=== PATIENT | female | born 1960 | race Caucasian/White ===

== ENCOUNTER 2017-04-26 07:45 | Day surgery (SDC) | payer OTHER ==
[2017-04-26] MEDS ORDERED: Lactated Ringer's 500 ML IV ONE (07:56)
[2017-04-26] MEDS ORDERED: Albuterol HFA 90 mcg/actuation (8 g) ONE (08:17)
[2017-04-26] MEDS ORDERED: Propofol 10 mg/ml Inj (20 ML) ONE (09:01)
[2017-04-26 10:10] VITALS: BP 140/88; PULSE 80; RESP 14; TEMP 98; O2SAT 99
== END 2017-04-26 10:30 | disposition home or self-care (01) ==
LOC: H.ENDO 07:45
PROVIDERS: ATTEND Internal Medicine Gastroenterology
DX: K30 Functional dyspepsia (principal); E11.9 Type 2 diabetes mellitus without complications; E78.5 Hyperlipidemia, unspecified; I10 Essential (primary) hypertension; J45.909 Unspecified asthma, uncomplicated; G47.33 Obstructive sleep apnea (adult) (pediatric); K31.9 Disease of stomach and duodenum, unspecified

== ENCOUNTER 2017-06-04 01:32 | Emergency (ER) | payer OTHER ==
[2017-06-04 01:48] VITALS: BP 161/90; RESP 17; TEMP 99.5; O2SAT 98
[2017-06-04] MEDS ORDERED: Albuterol-Ipratrop 3 mg / 0.5 (3 ml) UD INH STA (02:15)
[2017-06-04] MEDS ORDERED: Promethazine/Cod 6.25mg-10mg/5ml Syr UD PO STA (02:15)
[2017-06-04] MEDS ORDERED: Promethazine/Cod 6.25mg-10mg/5ml Syr UD ONE (02:21)
[2017-06-04] MEDS ORDERED: Albuterol-Ipratrop 3 mg / 0.5 (3 ml) UD ONE (02:22)
[2017-06-04 02:42] LABS: BASO # 0.1 K/uL (0.0-0.2); BASO % 1.5 % (0.0-2.0); EOS # 0.5 K/uL (0.0-0.7); EOS % 9.5 % (0.0-4.0); HEMATOCRIT 40.5 % (34.0-47.0); LYMPH # 2.3 K/uL (1.0-4.3); LYMPH % 40.9 % (20.0-40.0); MEAN CELL VOLUME 87.1 fl (81.0-99.0); MEAN CORPUSCULAR HEMOGLOBIN 28.6 pg (27.0-31.0); MEAN CORPUSCULAR HGB CONC 32.8 g/dL (33.0-37.0); MEAN PLATELET VOLUME 9.6 fl (7.2-11.7); MONO # 0.5 K/uL (0.0-0.8); MONO % 9.2 % (0.0-10.0); NEUT # 2.1 K/uL (1.8-7.0); NEUT % 38.9 % (50.0-75.0); NRBC % 0.1 % (0.0-0.0); RED CELL DISTRIBUTION WIDTH 14.7 % (11.5-14.5); WHITE BLOOD COUNT 5.5 K/uL (4.8-10.8)
[2017-06-04 02:51] LABS: BLOOD UREA NITROGEN 10 mg/dl (7-17); CALCIUM 9.2 mg/dL (8.4-10.2); CARBON DIOXIDE 30 mmol/L (22-30); CHLORIDE 104 mmol/L (98-107); GFR AFRICAN-AMERICAN > 60; GLUCOSE,RANDOM 106 mg/dL (65-105); POTASSIUM 4.1 MMOL/L (3.6-5.0); SODIUM 144 mmol/l (132-148)
--- NOTE | 2017-06-04 03:31 | ED PDOC ---
HPI: CCC, URI, Sore Throat Time Seen by Provider: 06/04/17 01:52 Chief Complaint (Nursing): Cough, Cold, Congestion Chief Complaint (Provider): Couj, Congestion and Difficulty Breathing Onset/Duration Of Symptoms: Days (x3 days) Associated Symptoms: denies: Fever Additional Complaint(s): Tereza Garcia, a 57 year old female, who has a past medical history of hypertension, hyperlipidemia and bronchitis presents to the ED with cough, congestion and difficulty breathing x1 day.The patient states that her cough is productive of yellow sputum with some associated chest pain. Denies fever. The patient reports that she has had intermittent episodes of difficulty breathing. She states that she saw Dr. Huitron yesterday and he prescribed ventolin and levaquin and she has been compliant with these medications. Patient also notes some sore throat and constipation. Past Medical History Reviewed: Historical Data, Nursing Documentation, Vital Signs Vital Signs: Last Vital Signs Temp 99.5 F 06/04/17 01:44 Pulse 92 H 06/04/17 03:41 Resp 17 06/04/17 01:44 BP 161/90 H 06/04/17 01:44 Pulse Ox 98 06/04/17 03:41 - Medical History PMH: Asthma (NEVER HAD ATTACK), Bronchitis, HTN, Hypercholesterolemia, Sleep Apnea Denies: Chronic Kidney Disease - Family History Family History: States: Unknown Family Hx - Home Medications Home Medications: Ambulatory Orders Medication Instructions Recorded Albuterol HFA [Ventolin HFA 90 2 puff IH [id number] 04/26/17 mcg/actuation (8 g)] Atorvastatin [Lipitor] 40 mg PO DAILY 04/26/17 Losartan/Hydrochlorothiazide 1 each PO DAILY 04/26/17 [Losartan-Hctz 100-25 mg Tab] Metformin ER [Glucophage XR] 500 mg PO DAILY 04/26/17 Cholecalciferol (Vitamin D3) 50,000 unit PO QWK 06/04/17 [Vitamin D3] Esomeprazole Magnesium [Nexium 2 cap PO DAILY 06/04/17 24Hr] Fish Oil/Dha/Epa [Fish Oil 1,200 1 each PO DAILY 06/04/17 mg Fish Oil] Promethazine/Codeine 5 ml PO Q6 PRN #100 ml 06/04/17 [Phenergan/Codeine Oral Syrup] levoFLOXacin [Levaquin] 500 mg PO DAILY 06/04/17 - Allergies Allergies/Adverse Reactions: Allergies Allergy/AdvReac Type Severity Reaction Status Date / Time No Known Allergies Allergy Unverified 02/22/14 12:23 Review of Systems ROS Statement: Except As Marked, All Systems Reviewed And Found Negative Constitutional: Positive for: Other (Congestion). Negative for: Fever ENT: Positive for: Throat Pain Cardiovascular: Positive for: Chest Pain (Chest pain with cough) Respiratory: Positive for: Cough Gastrointestinal: Positive for: Constipation Physical Exam - Reviewed Nursing Documentation Reviewed: Yes Vital Signs Reviewed: Yes - Physical Exam Appears: Positive for: Non-toxic, No Acute Distress Head Exam: Positive for: ATRAUMATIC, NORMAL INSPECTION, NORMOCEPHALIC Skin: Positive for: Normal Color, Warm, Dry Eye Exam: Positive for: Normal appearance, EOMI, PERRL ENT: Positive for: Normal ENT Inspection Neck: Positive for: Normal, Painless ROM, Supple Cardiovascular/Chest: Positive for: Regular Rate, Rhythm, Chest Non Tender. Negative for: Tachycardia Respiratory: Positive for: Wheezing (Wheezes bilaterally.). Negative for: Respiratory Distress Gastrointestinal/Abdominal: Positive for: Normal Exam Back: Positive for: Normal Inspection Extremity: Positive for: Normal ROM Neurologic/Psych: Positive for: Alert, Oriented, Gait - Laboratory Results Result Diagrams: 06/04/17 02:37 06/04/17 02:37 - ECG ECG: Positive for: Interpreted By Me, Viewed By Me ECG Rhythm: Positive for: Normal QRS, Normal ST Segment, Sinus Rhythm. Negative for: ST/T Changes Rate: 92 O2 Sat by Pulse Oximetry: 98 (RA) Pulse Ox Interpretation: Normal - Radiology X-Ray: Interpreted by Me, Viewed By Me X-Ray Interpretation: No Acute Disease Medical Decision Making Medical Decision Makin Initial Impression: 57 year old female presenting with acute bronchitis Differential: Pneumonia Initial plan: * EKG * Basic Metabolic Panel * CBC * Chest X-ray * Blood Culture * Peak flow pre/post * Duoneb 3mg/0.5m INH * Rapid strep group * Reevaluation Patient is medically stable and will be discharged home. Scribe Attestation Documented by Felicita Ortiz acting as a scribe for Priscilla Obrien MD. Provider Attestation All medical record entries made by the Scribe were at my direction and personally dictated by me. I have reviewed the chart and agree that the record accurately reflects my personal performance of the history, physical exam, medical decision making, and the department course for this patient. I have also personally directed, reviewed, and agree with the discharge instructions and disposition. Disposition - Clinical Impression Clinical Impression: Acute bronchitis - Patient ED Disposition Is Patient to be Admitted: No Doctor Will See Patient In The: Office Counseled Patient/Family Regarding: Studies Performed, Diagnosis, Need For Followup - Disposition Referrals: Donnell Fuller MD [Primary Care Provider] - Disposition: Routine/Home Disposition Time: 03:30 Condition: GOOD Additional Instructions: Take your medications as instructed. Follow up with your PCP in 2-3 days. Prescriptions: Promethazine/Codeine [Phenergan/Codeine Oral Syrup] 5 ml PO Q6 PRN #100 ml PRN Reason: Cough Instructions: Acute Bronchitis (ED) Forms: [employer] (Kazakh)
[2017-06-04 03:41] VITALS: PULSE 92
--- NOTE | 2017-06-04 07:11 | RAD ---
HISTORY: cough fever COMPARISON: None available. TECHNIQUE: Chest PA and lateral FINDINGS: LUNGS: No focal consolidation. Please note that chest x-ray has limited sensitivity for the detection of pulmonary masses. PLEURA: No significant pleural effusion identified. No definite pneumothorax . CARDIOVASCULAR: Heart size appears top normal. OSSEOUS STRUCTURES: Degenerative changes of the spine and shoulders. VISUALIZED UPPER ABDOMEN: Unremarkable. OTHER FINDINGS: None. IMPRESSION: No focal consolidation, significant pleural effusion, or definite pneumothorax identified.
== END 2017-06-04 03:45 | disposition home or self-care (01) ==
LOC: H.ER 01:32
DX: J20.9 Acute bronchitis, unspecified (principal); Z79.84 Long term (current) use of oral hypoglycemic drugs

== ENCOUNTER 2018-05-08 03:29 | Emergency (ER) | payer OTHER ==
[2018-05-08 03:46] VITALS: TEMP 98; O2SAT 98
[2018-05-08] MEDS ORDERED: diaZEpam 10 mg/2 ml Inj IVP ONE (03:52)
[2018-05-08] MEDS ORDERED: Morphine 4 MG/ML VIAL IVP ONE (03:54)
[2018-05-08] MEDS ORDERED: Morphine 4 MG/ML VIAL ONE (04:02)
--- NOTE | 2018-05-08 04:02 | ED PDOC ---
Upper Extremity Pain/Injury Time Seen by Provider: 05/08/18 03:41 Chief Complaint (Nursing): ENT Problem Chief Complaint (Provider): ENT Problem History Per: Patient History/Exam Limitations: no limitations Onset/Duration Of Symptoms: Days (x3) Current Symptoms Are (Timing): Still Present Additional Complaint(s): 57 year old female with medical history of dyslipidemia and hypertension, presents to the emergency department with a complaint of neck pain ongoing for 3 days. Patient reports pain radiates from ears to scalp to right collar bone associated stiffness with inability to rotate head. She states pain is worse with movements and has taken Ibuprofen without relief. She denies any fever, chills, headache, visual changes, nausea or vomiting. PMD: Donnell Fuller MD Past Medical History Reviewed: Historical Data, Nursing Documentation, Vital Signs Vital Signs: Last Vital Signs Temp 98.0 F 05/08/18 03:44 Pulse 68 05/08/18 03:44 Resp 16 05/08/18 03:44 BP 182/84 H 05/08/18 03:44 Pulse Ox 98 05/08/18 03:44 - Medical History PMH: Asthma (NEVER HAD ATTACK), Bronchitis, Gastritis, HTN, Hypercholesterolemia , Sleep Apnea Denies: Chronic Kidney Disease Other PMH: dyslipidemia; H. Pylori - Family History Family History: States: Unknown Family Hx - Home Medications Home Medications: Ambulatory Orders Medication Instructions Recorded Albuterol HFA [Ventolin HFA 90 2 puff IH [id number] 04/26/17 mcg/actuation (8 g)] Atorvastatin [Lipitor] 40 mg PO DAILY 04/26/17 Losartan/Hydrochlorothiazide 1 each PO DAILY 04/26/17 [Losartan-Hctz 100-25 mg Tab] MetFORMIN ER [Glucophage XR] 500 mg PO DAILY 04/26/17 Cholecalciferol (Vitamin D3) 50,000 unit PO QWK 06/04/17 [Vitamin D3] Esomeprazole Magnesium [Nexium 2 cap PO DAILY 06/04/17 24Hr] Fish Oil/Dha/Epa [Fish Oil 1,200 1 each PO DAILY 06/04/17 mg Fish Oil] Promethazine/Codeine 5 ml PO Q6 PRN #100 ml 06/04/17 [Phenergan/Codeine Oral Syrup] levoFLOXacin [Levaquin] 500 mg PO DAILY 06/04/17 Cyclobenzaprine [Cyclobenzaprine 10 mg PO TID PRN #15 tab 05/08/18 HCl] Meloxicam [Mobic] 15 mg PO DAILY #10 tab 05/08/18 - Allergies Allergies/Adverse Reactions: Allergies Allergy/AdvReac Type Severity Reaction Status Date / Time No Known Allergies Allergy Unverified 02/22/14 12:23 Review of Systems ROS Statement: Except As Marked, All Systems Reviewed And Found Negative Constitutional: Negative for: Fever, Chills Eyes: Negative for: Vision Change Gastrointestinal: Negative for: Nausea, Vomiting Musculoskeletal: Positive for: Neck Pain (stiff; unable to rotate head) Neurological: Negative for: Headache Physical Exam - Reviewed Nursing Documentation Reviewed: Yes Vital Signs Reviewed: Yes - Physical Exam Appears: Positive for: Uncomfortable Head Exam: Positive for: ATRAUMATIC, NORMAL INSPECTION, NORMOCEPHALIC Skin: Positive for: Normal Color Eye Exam: Positive for: Normal appearance ENT: Positive for: Normal ENT Inspection Neck: Positive for: Supple, Decreased ROM, Pain On Movement Of Neck (inability to rotate 30 degrees past midline bilaterally) Cardiovascular/Chest: Positive for: Regular Rate, Rhythm Respiratory: Positive for: Normal Breath Sounds. Negative for: Respiratory Distress Extremity: Positive for: Normal ROM (upper/lower) Neurologic/Psych: Positive for: Alert, Oriented. Negative for: Motor/Sensory Deficits - Laboratory Results Result Diagrams: 05/08/18 04:18 05/08/18 04:18 - ECG O2 Sat by Pulse Oximetry: 98 (RA) Pulse Ox Interpretation: Normal Medical Decision Making Medical Decision Making: Initial Impression: 57 y/o female with acute torticollis Initial Plan: * BMP * CBC * Flexeril 10mg PO * Morphine 4mg IVP * Toradol 30mg IV * Valium 10mg IVP Scribe Attestation: Documented by Yesenia Mohan, acting as a scribe for Chandler Pradhan MD. Provider Scribe Attestation: All medical record entries made by the Scribe were at my direction and personally dictated by me. I have reviewed the chart and agree that the record accurately reflects my personal performance of the history, physical exam, medical decision making, and the department course for this patient. I have also personally directed, reviewed, and agree with the discharge instructions and disposition. Disposition - Clinical Impression Clinical Impression: Torticollis - Disposition Disposition: Routine/Home Disposition Time: 06:00 Condition: STABLE Prescriptions: Cyclobenzaprine [Cyclobenzaprine HCl] 10 mg PO TID PRN #15 tab PRN Reason: neck pain/stiffness Instructions: Torticollis, Adult Forms: [facility] (Cape Verdean)
[2018-05-08 04:23] LABS: BASO # 0.1 K/uL (0.0-0.2); BASO % 1.3 % (0.0-2.0); EOS # 0.7 K/uL (0.0-0.7); EOS % 9.4 % (0.0-4.0); HEMOGLOBIN 12.7 g/dL (12.0-16.0); LYMPH # 3.8 K/uL (1.0-4.3); LYMPH % 51.5 % (20.0-40.0); MEAN CORPUSCULAR HEMOGLOBIN 29.8 pg (27.0-31.0); MEAN CORPUSCULAR HGB CONC 34.3 g/dL (33.0-37.0); MEAN PLATELET VOLUME 9.6 fl (7.2-11.7); MONO # 0.8 K/uL (0.0-0.8); MONO % 10.6 % (0.0-10.0); NEUT % 27.2 % (50.0-75.0); NRBC % 0.1 % (0.0-0.0); RBC 4.26 Mil/uL (3.80-5.20); RED CELL DISTRIBUTION WIDTH 14.6 % (11.5-14.5); WHITE BLOOD COUNT 7.3 K/uL (4.8-10.8)
[2018-05-08 04:58] LABS: GFR AFRICAN-AMERICAN > 60; GFR NON-AFRICAN AMERICAN > 60
[2018-05-08 05:20] LABS: BLOOD UREA NITROGEN 15 mg/dl (7-17)
[2018-05-08 06:22] VITALS: BP 161/94; PULSE 86; RESP 17
== END 2018-05-08 06:22 | disposition home or self-care (01) ==
LOC: H.ER 03:29
DX: M43.6 Torticollis (principal)
CPT/HCPCS: 80048; 85025; 96374; 99283; J1885

== ENCOUNTER 2018-05-08 18:03 | Emergency (ER) | payer SELFPAY ==
[2018-05-08 18:21] VITALS: RESP 18; TEMP 98.5
[2018-05-08] MEDS ORDERED: diaZEpam 10 mg/2 ml Inj IVP STA (18:41)
--- NOTE | 2018-05-08 20:16 | ED PDOC ---
Upper Extremity Pain/Injury Time Seen by Provider: 05/08/18 18:27 Chief Complaint (Nursing): Upper Extremity Problem/Injury Chief Complaint (Provider): Neck pain History Per: Patient History/Exam Limitations: no limitations Onset/Duration Of Symptoms: Days (x4) Additional Complaint(s): Patient is a 57 y/o female with history of asthma, HTN and HLD, who presents to the ED for evaluation of persistent neck pain, onset x4 days ago. Patient states she was seen in [facility] ED earlier this morning at 03:00 for the same pain and was given medication in the ED with temporary relief. She was discharged with a Rx for Flexeril which she last took at 11:00 today with no relief. Patient reports that pain worsens with movement and originates in the back of her scalp and radiates into her neck and shoulders bilaterally. She denies any fever, headache, dizziness, chills, vision changes, weakness, numbness, abdominal pain, chest pain, nausea, vomiting, rash, SOB, cough, or any falls/ trauma. PMD: Donnell Fuller Past Medical History Reviewed: Historical Data, Nursing Documentation, Vital Signs Vital Signs: Last Vital Signs Temp 98.5 F 05/08/18 18:17 Pulse 80 05/08/18 18:17 Resp 18 05/08/18 18:17 BP 166/88 H 05/08/18 18:17 Pulse Ox 99 05/08/18 18:17 - Medical History PMH: Asthma, Bronchitis, Gastritis, HTN, Hypercholesterolemia, Sleep Apnea - Surgical History Surgical History: No Surg Hx - Family History Family History: States: Unknown Family Hx - Living Arrangements Living Arrangements: With Family - Social History Current smoker - smoking cessation education provided: No Alcohol: Social Drugs: Denies - Home Medications Home Medications: Ambulatory Orders Medication Instructions Recorded Albuterol HFA [Ventolin HFA 90 2 puff IH [id number] 04/26/17 mcg/actuation (8 g)] Atorvastatin [Lipitor] 40 mg PO DAILY 04/26/17 Losartan/Hydrochlorothiazide 1 each PO DAILY 04/26/17 [Losartan-Hctz 100-25 mg Tab] MetFORMIN ER [Glucophage XR] 500 mg PO DAILY 04/26/17 Cholecalciferol (Vitamin D3) 50,000 unit PO QWK 06/04/17 [Vitamin D3] Esomeprazole Magnesium [Nexium 2 cap PO DAILY 06/04/17 24Hr] Fish Oil/Dha/Epa [Fish Oil 1,200 1 each PO DAILY 06/04/17 mg Fish Oil] Promethazine/Codeine 5 ml PO Q6 PRN #100 ml 06/04/17 [Phenergan/Codeine Oral Syrup] levoFLOXacin [Levaquin] 500 mg PO DAILY 06/04/17 Cyclobenzaprine [Cyclobenzaprine 10 mg PO TID PRN #15 tab 05/08/18 HCl] Meloxicam [Mobic] 15 mg PO DAILY #10 tab 05/08/18 - Allergies Allergies/Adverse Reactions: Allergies Allergy/AdvReac Type Severity Reaction Status Date / Time No Known Allergies Allergy Unverified 02/22/14 12:23 Review of Systems ROS Statement: Except As Marked, All Systems Reviewed And Found Negative Constitutional: Negative for: Fever, Chills, Weakness, Other (fall or trauma) Cardiovascular: Negative for: Chest Pain Gastrointestinal: Negative for: Nausea, Vomiting, Abdominal Pain Musculoskeletal: Positive for: Neck Pain Skin: Negative for: Rash Neurological: Negative for: Numbness, Headache Physical Exam - Reviewed Nursing Documentation Reviewed: Yes Vital Signs Reviewed: Yes - Physical Exam Comments: GENERAL APPEARANCE: Patient is awake, alert, oriented x3; no acute distress. Uncomfortable appearing. SKIN: Warm, dry; (-) cyanosis. HEAD: (-) scalp tenderness EYES: (-) conjunctival pallor, (-) scleral icterus. ENMT: Mucous membranes moist. Airway patent (-) stridor. TMs (-) erythema (-) bulging bilaterally. Pharynx clear, uvula midline. (-) pharyngeal erythema or exudate. NECK: Supple (-) lymphadenopathy. Decreased range of motion secondary to pain; diffuse paracervical and midline tenderness. (-) skin changes CHEST AND RESPIRATORY: (-) rales, (-) rhonchi, (-) wheezes; breath sounds equal bilaterally. Speaking in full sentences, respirations even and nonlabored. HEART AND CARDIOVASCULAR: (-) irregularity; (-) murmur, (-) gallop. ABDOMEN: Soft (-) distention.(-) tenderness (-) guarding SHOULDERS: Bilateral trapezius tenderness. Decreased extension and abduction of arms secondary to neck pain NEURO AND PSYCH: Mental status as above; (-) focal findings. Gait steady, speech clear. EOMI and painless. Pupils equal and reactive. (-) nystagmus. Strength symmetric. bass singer II-XII grossly intact. Cerebellar tests intact. - ECG O2 Sat by Pulse Oximetry: 99 (RA) Pulse Ox Interpretation: Normal Medical Decision Making Medical Decision Making: Time: 18:41 Initial Impression: Acute neck pain/spasm Initial Plan: --IV access --RAD cervical spine 4 views --Toradol 30mg IVP --Ultram 100mg PO (Not driving home) --Valium 5mg PO --Zofran 4mg IVP --Reevaluation Cervical XR reviewed: (+) degenerative changes (-) fracture (-) dislocation Patient notified a Radiologist will review the ED reading if any change in treatment is needed we will contact her. Time 20:15 Repeat BP: 149/80 Repeat HR: 71 On re-evaluation, patient reports improvement of symptoms. Improved ROM of neck. On exam, patient remains AAOx3, in no acute distress. Lungs clear to auscultation, cardiac RRR, abdomen soft, non-tender, repeat neuro exam shows no focal findings. VSS, stable for discharge. Advised to continue Flexeril use in addition to new NSAID Rx. Lab/Diagnostic results d/w the patient in great detail. Diagnosis of acute neck pain/spasm d/w the patient. Based on history, exam and diagnostic results, plan will be for outpatient follow up. Patient instructed to follow-up with pmd / referral provided / the clinic in 1- 2 days without fail. Advised to take medication as prescribed. Return to the emergency room at any time for any new or worsening symptoms. Patient states she fully agrees with and understands discharge instructions. States that she agrees with the plan and disposition. Verbalized and repeated discharge instructions and plan. I have given the patient opportunity to ask any additional questions. Scribe Attestation: Documented by Mik Pennington, acting as a scribe for Alyx Neal PA-C Provider Scribe Attestation: All medical record entries made by the Scribe were at my direction and personally dictated by me. I have reviewed the chart and agree that the record accurately reflects my personal performance of the history, physical exam, medical decision making, and the department course for this patient. I have also personally directed, reviewed, and agree with the discharge instructions and disposition. Disposition - Clinical Impression Clinical Impression: Muscle spasms of neck, Neck pain - Patient ED Disposition Is Patient to be Admitted: No Counseled Patient/Family Regarding: Studies Performed, Diagnosis, Need For Followup, Rx Given - Disposition Referrals: Shawn Van MD [Staff Provider] - Disposition: Routine/Home Disposition Time: 20:17 Condition: STABLE Additional Instructions: ANTON HATHAWAY, thank you for letting us take care of you today. The emergency medical care you received today was directed at your acute symptoms. If you were prescribed any medication, please fill it and take as directed. It may take several days for your symptoms to resolve. Return to the Emergency Department if your symptoms worsen, do not improve, or if you have any other problems. Please contact your doctor or call one of the physicians/clinics you have been referred to that are listed on the Patient Visit Information form that is included in your discharge packet. Bring any paperwork you were given at discharge with you along with any medications you are taking to your follow up visit. Our treatment cannot replace ongoing medical care by a primary care provider outside of the emergency department. Thank you for allowing the [facility] team to be part of your care today. If you had an X-Ray or CT scan: A Radiologist will review the ED reading if any change in treatment is needed we will contact you. If you had a blood, urine, or wound culture: It will take several days for the results, if any change in treatment is needed we will contact you. If you had an STI test: It will take 48 hours for the results. Please call after 1 week if you have not heard back. Prescriptions: Meloxicam [Mobic] 15 mg PO DAILY #10 tab Instructions: Neck Pain, Muscle Spasms (DC), Generalized Neck Pain Forms: [facility] (Kittitian) Print Language: ITALIAN - POJuana Present On Arrival: None
[2018-05-08 20:30] VITALS: BP 149/80; PULSE 71
--- NOTE | 2018-05-09 10:14 | RAD ---
PROCEDURE: Cervical Spine Radiographs. HISTORY: Pain. COMPARISON: None. FINDINGS: BONES: Alignment maintained. No fracture. Dens Intact. DISC SPACES: Minimal narrowing of the C5-6 intervertebral disc space consistent with early degenerative disc disease. The remaining intervertebral disc spaces are maintained in height. SOFT TISSUES: Normal. No prevertebral soft tissue swelling. OTHER FINDINGS: None. IMPRESSION: Early degenerative disc disease at C5-6. No evidence of fracture/ dislocation.
[2018-05-12 13:45] VITALS: O2SAT 99
== END 2018-05-08 20:29 | disposition home or self-care (01) ==
LOC: H.ER 18:03
DX: M54.2 Cervicalgia (principal); E78.00 Pure hypercholesterolemia, unspecified; Z79.84 Long term (current) use of oral hypoglycemic drugs; Z87.19 Personal history of other diseases of the digestive system; M62.838 Other muscle spasm
CPT/HCPCS: 72050; 96374; 96375; 99283; J1885; J2405

== ENCOUNTER 2018-06-11 14:30 | Emergency (ER) | payer OTHER ==
[2018-06-11 14:34] VITALS: BMI 36.7
[2018-06-11] MEDS ORDERED: Iohexol 240 (50 ml) PO ONE (15:15)
[2018-06-11] MEDS ORDERED: Sodium Chloride 0.9% 1,000 ML IV STA (15:18)
--- NOTE | 2018-06-11 15:24 | ED PDOC ---
HPI: Abdomen Time Seen by Provider: 06/11/18 15:04 Chief Complaint (Nursing): Abdominal Pain Chief Complaint (Provider): Abdominal Pain History Per: Patient History/Exam Limitations: no limitations Onset/Duration Of Symptoms: Days (x2) Current Symptoms Are (Timing): Still Present Location Of Pain/Discomfort: Diffuse Quality Of Discomfort: Unable To Describe Associated Symptoms: Fever, Nausea. denies: Vomiting Additional Complaint(s): 58 y/o female with a PMHx of HTN presents to the ED complaining of abdominal pain and diarrhea, onset night. Patient reports of having 8 episodes of water, non-bloody diarrhea a day associated with nausea. Patient also reports of having a fever with a Tmax of 102, decreased appetite, myalgia, malaise and fatigue. Patient states her was admitted to the ICU for dehydration, diarrhea and sepsis yesterday. Patient states her began to get sick two days prior to onset of her illness. Denies recent travel and antibiotic use. Patient reports abdominal pain as diffuse and cramping. Patient also is complaining of right upper quadrant abdominal pain that she's had for two years. PMD: Dr. Fuller Past Medical History Reviewed: Historical Data, Nursing Documentation, Vital Signs Vital Signs: Last Vital Signs Temp 97.8 F 06/11/18 19:33 Pulse 70 06/11/18 19:33 Resp 17 06/11/18 19:33 BP 128/71 06/11/18 19:33 Pulse Ox 100 06/11/18 19:33 - Medical History PMH: Asthma, Bronchitis, Gastritis, HTN, Hypercholesterolemia, Sleep Apnea Denies: Chronic Kidney Disease - Surgical History Surgical History: No Surg Hx - Family History Family History: States: Hypertension - Social History Current smoker - smoking cessation education provided: No Alcohol: None Drugs: Denies - Home Medications Home Medications: Ambulatory Orders Medication Instructions Recorded Albuterol HFA [Ventolin HFA 90 2 puff IH [id number] 04/26/17 mcg/actuation (8 g)] Atorvastatin [Lipitor] 40 mg PO DAILY 04/26/17 Losartan/Hydrochlorothiazide 1 each PO DAILY 04/26/17 [Losartan-Hctz 100-25 mg Tab] MetFORMIN ER [Glucophage XR] 500 mg PO DAILY 04/26/17 Cholecalciferol (Vitamin D3) 50,000 unit PO QWK 06/04/17 [Vitamin D3] Esomeprazole Magnesium [Nexium 2 cap PO DAILY 06/04/17 24Hr] Fish Oil/Dha/Epa [Fish Oil 1,200 1 each PO DAILY 06/04/17 mg Fish Oil] Promethazine/Codeine 5 ml PO Q6 PRN #100 ml 06/04/17 [Phenergan/Codeine Oral Syrup] levoFLOXacin [Levaquin] 500 mg PO DAILY 06/04/17 Cyclobenzaprine [Cyclobenzaprine 10 mg PO TID PRN #15 tab 05/08/18 HCl] Meloxicam [Mobic] 15 mg PO DAILY #10 tab 05/08/18 Atropine/Diphenoxylate [Lonox 2 tab PO QID PRN #30 tab 06/11/18 0.025 MG-2.5 MG] Ciprofloxacin HCl [Cipro] 500 mg PO BID #20 tab 06/11/18 Saccharomyces Boulardi [Florastor] 500 mg PO BID #28 cap 06/11/18 metroNIDAZOLE [Flagyl] 500 mg PO TID #30 tab 06/11/18 - Allergies Allergies/Adverse Reactions: Allergies Allergy/AdvReac Type Severity Reaction Status Date / Time No Known Allergies Allergy Unverified 02/22/14 12:23 Review of Systems ROS Statement: Except As Marked, All Systems Reviewed And Found Negative (as per HPI) Constitutional: Positive for: Fever (Tmax of 102), Malaise, Other (Myalgia and Fatigue) Gastrointestinal: Positive for: Nausea, Abdominal Pain (Diffuse and cramping), Diarrhea (Watery, non-bloody), Other (Decreased appetite). Negative for: Vomiting Physical Exam - Reviewed Nursing Documentation Reviewed: Yes Vital Signs Reviewed: Yes - Physical Exam Appears: Positive for: Non-toxic, In Acute Distress (Tired and in mild painful distress) Head Exam: Positive for: ATRAUMATIC, NORMOCEPHALIC Skin: Positive for: Warm, Dry Eye Exam: Positive for: EOMI, PERRL ENT: Positive for: Normal ENT Inspection, Pharynx Is (clear), Other (Dry Mucous Membranes) Neck: Positive for: Painless ROM, Supple Cardiovascular/Chest: Positive for: Regular Rate, Rhythm. Negative for: Murmur Respiratory: Positive for: Normal Breath Sounds. Negative for: Respiratory Distress Gastrointestinal/Abdominal: Positive for: Normal Exam, Soft, Tenderness ( Diffuse tenderness to palpation). Negative for: Mass, Guarding, Rebound Back: Positive for: Normal Inspection. Negative for: Decreased ROM Extremity: Positive for: Normal ROM. Negative for: Deformity Lymphatic: Negative for: Adenopathy Neurologic/Psych: Positive for: Alert. Negative for: Motor/Sensory Deficits - Laboratory Results Result Diagrams: 06/11/18 15:20 06/11/18 15:52 - ECG O2 Sat by Pulse Oximetry: 97 (RA) Pulse Ox Interpretation: Normal Medical Decision Making Medical Decision Making: Time: 152 Impression: Diarrhea, Abdominal Pain and Sepsis Differentials include but not limited to dehydration, electrolyte abnormality, colitis, diverticulitis, infectious diarrhea and C. Diff Plan: -- Type and Screen -- VBG -- CT Abd/Pelvis PO & IV Contrast -- EKG -- CMP -- Lipase -- Magnesium -- Phosphorus -- CBC with differentials -- PTT -- Prothromin Time -- Bentyl 20 mg PO -- Sodium Chloride IV 1000 mls/hr -- Iohexol 50 ml PO -- Zofran Inj 4 mg IVP -- Blood Culture -- OVA and Parasite -- Stool Culture -- Urine Culture -- IV Insertion -- C. Diff Toxin A B -- Urinalysis Time: 183 CT ABD/PELVIS RESULTS FINDINGS: Lower thorax: No acute findings. ABDOMEN: Liver: Normal. No mass. Gallbladder and bile ducts: Normal. No calcified stones. No ductal dilation. Pancreas: Normal. No ductal dilation. Spleen: Normal. No splenomegaly. Adrenals: Normal. No mass. Kidneys and ureters: Normal. No hydronephrosis. Stomach and bowel: There is mild colonic diverticulosis mainly in the descending and sigmoid colon. There is colonic wall thickening throughout the colon which may be partly due to under distention but cannot exclude mild nonspecific pancolitis. Less consistent with acute diverticulitis. No signs of abscess or perforation. Appendix: The appendix is unremarkable and seen best on axial image 67 of series 2. PELVIS: Bladder: Unremarkable as visualized. Reproductive: Unremarkable as visualized. ABDOMEN and PELVIS: Intraperitoneal space: Normal. No free air. No significant fluid collection. Bones/joints: No acute fracture. No dislocation. Soft tissues: Unremarkable. Vasculature: There are calcified phleboliths in the pelvis. Lymph nodes: Normal. No enlarged lymph nodes. IMPRESSION: There is mild colonic diverticulosis mainly in the descending and sigmoid colon. There is colonic wall thickening throughout the colon which may be partly due to under distention but cannot exclude mild nonspecific pancolitis. Less consistent with acute diverticulitis. No signs of abscess or perforation. Thank you for allowing us to participate in the care of your patient. Dictated and Authenticated by: Chan Pelaez MD 06/11/2018 6:35 PM Eastern Time ([place] & [place]) Time: 1844 -- Lab results were unremarkable. -- Discussed with patient findings and plan of care. Patient to be started on antibiotics and instructed to follow up with PMD for re-evaluation. Patient advised for a GI follow up for re-current abdominal pain and further evaluation of colitis. Scribe Attestation: Documented by Dipesh Nelson, acting as a scribe for Dr. Liliya Rangel. Provider Scribe Attestation: All medical record entries made by the Scribe were at my direction and personally dictated by me. I have reviewed the chart and agree that the record accurately reflects my personal performance of the history, physical exam, medical decision making, and the department course for this patient. I have also personally directed, reviewed, and agree with the discharge instructions and disposition. Disposition - Clinical Impression Clinical Impression: Colitis - Patient ED Disposition Is Patient to be Admitted: No Counseled Patient/Family Regarding: Studies Performed, Diagnosis, Need For Followup, Rx Given - Disposition Referrals: Donnell Fuller MD [Staff Provider] - Disposition: Routine/Home Disposition Time: 18:45 Condition: STABLE Additional Instructions: DRINK PLENTY IF HYDRATING FLUIDS BLAND DIET. FOLLOW UP WITH DR FULLER WEDNESDAY. ALSO FOLLOW UP WITH YOUR PHYSICAL SCIENCES PROFESSOR IN 1-2 WEEKS. RETURN TO ER IMMEDIATELY FOR: --SEVERE INTRACTABLE PAIN OR VOMITING --FAINTING OR NEAR FAINTING --BLOODY STOOL --ANY OTHER WORRISOME SYMPTOMS [facility], thank you for letting us take care of you today. Your provider was Liliya Rangel MD and you were treated for abdominal pain and diarrhea. The emergency medical care you received today was directed at your acute symptoms. If you were prescribed any medication, please fill it and take as directed. It may take several days for your symptoms to resolve. Return to the Emergency Department if your symptoms worsen, do not improve, or if you have any other problems. Please contact your doctor or call one of the physicians/clinics you have been referred to that are listed on the Patient Visit Information form that is included in your discharge packet. Bring any paperwork you were given at discharge with you along with any medications you are taking to your follow up visit. Our treatment cannot replace ongoing medical care by a primary care provider outside of the emergency department. Thank you for allowing the [facility] team to be part of your care today. If you had a blood, urine, or wound culture: It will take several days for the results, if any change in treatment is needed we will contact you. Prescriptions: Atropine/Diphenoxylate [Lonox 0.025 MG-2.5 MG] 2 tab PO QID PRN #30 tab PRN Reason: Diarrhea Ciprofloxacin HCl [Cipro] 500 mg PO BID #20 tab metroNIDAZOLE [Flagyl] 500 mg PO TID #30 tab Saccharomyces Boulardi [Florastor] 500 mg PO BID #28 cap Instructions: Diarrhea and Traveler's Diarrhea, Adult (DC) Forms: [employer] (Georgian)
[2018-06-11 15:47] LABS: VENOUS BLOOD GAS BASE EXCESS 1.7 mmol/L (0.0-2.0); VENOUS BLOOD GAS PCO2 42 mmHg (40-60); VENOUS BLOOD GAS PO2 39 mm/Hg (30-55); VENOUS BLOOD PH 7.41 (7.32-7.43)
[2018-06-11] MEDS ORDERED: Iohexol 240 (50 ml) ONE (15:48)
[2018-06-11 16:13] LABS: BASO % 0.5 % (0.0-2.0); EOS % 0.6 % (0.0-4.0); HEMOGLOBIN 12.9 g/dL (12.0-16.0); LYMPH # 1.8 K/uL (1.0-4.3); LYMPH % 23.8 % (20.0-40.0); MEAN CELL VOLUME 86.9 fl (81.0-99.0); MEAN CORPUSCULAR HEMOGLOBIN 28.9 pg (27.0-31.0); MEAN CORPUSCULAR HGB CONC 33.2 g/dL (33.0-37.0); MEAN PLATELET VOLUME 9.7 fl (7.2-11.7); MONO # 0.4 K/uL (0.0-0.8); MONO % 5.4 % (0.0-10.0); NEUT # 5.3 K/uL (1.8-7.0); NEUT % 69.7 % (50.0-75.0); RBC 4.46 Mil/uL (3.80-5.20); RED CELL DISTRIBUTION WIDTH 13.7 % (11.5-14.5); WHITE BLOOD COUNT 7.7 K/uL (4.8-10.8)
[2018-06-11 16:22] LABS: INR 1.1; PROTHROMBIN TIME 11.8 Seconds (9.8-13.1)
[2018-06-11 16:25] LABS: PARTIAL THROMBOPLASTIN TIME 30.7 Seconds (25.6-37.1)
[2018-06-11 16:29] LABS: ALB/GLOB RATIO 1.2 (1.0-2.1); ALBUMIN 4.2 g/dL (3.5-5.0); ALT/SGPT 49 U/L (9-52); AST/SGOT 41 U/L (14-36); BLOOD UREA NITROGEN 11 mg/dl (7-17); GFR AFRICAN-AMERICAN > 60; GFR NON-AFRICAN AMERICAN > 60; LIPASE 20 U/L (23-300)
[2018-06-11 17:08] LABS: SQUAMOUS EPITHIAL 4 /hpf (0-5); URINE BILIRUBIN NEGATIVE (NEGATIVE); URINE BLOOD NEGATIVE (NEGATIVE); URINE CLARITY CLEAR (Clear); URINE COLOR STRAW (YELLOW); URINE GLUCOSE (UA) NEG (Normal); URINE LEUKOCYTE ESTERASE NEG Leu/uL (Negative); URINE PROTEIN NEGATIVE (NEGATIVE); URINE UROBILINOGEN 0.2-1.0 mg/dL (0.2-1.0)
[2018-06-11] MEDS ORDERED: Iohexol 300 100 ML IJ ONE (17:58)
[2018-06-11] MEDS ORDERED: Sodium Chloride 0.9% 50 ML IV ONE (17:59)
[2018-06-11] MEDS ORDERED: Atropine-Diphenoxylate 0.025-2.5 mg Tab PO STA (18:39)
[2018-06-11] MEDS ORDERED: Atropine-Diphenoxylate 0.025-2.5 mg Tab ONE (19:00)
[2018-06-11 19:34] VITALS: BP 128/71; PULSE 70; RESP 17; TEMP 97.8
[2018-06-11 22:08] VITALS: O2SAT 97
--- NOTE | 2018-06-12 08:48 | CARD ---
APPROVED REPORT Date of service: 06/11/2018 <Conclusion> Normal sinus rhythm Possible Left atrial enlargement Prolonged QT Abnormal ECG
--- NOTE | 2018-06-12 08:57 | CT ---
Date of service: 06/11/2018 PROCEDURE: CT Abdomen and Pelvis with contrast HISTORY: abd pain diarrhea fever COMPARISON: None. TECHNIQUE: Contrast dose: Radiation dose: Total exam DLP = mGy-cm. This CT exam was performed using one or more of the following dose reduction techniques: Automated exposure control, adjustment of the mA and/or kV according to patient size, and/or use of iterative reconstruction technique. FINDINGS: LOWER THORAX: Unremarkable. LIVER: Unremarkable. No gross lesion or ductal dilatation. GALLBLADDER AND BILE DUCTS: Unremarkable. PANCREAS: Unremarkable. No gross lesion or ductal dilatation. SPLEEN: Unremarkable. ADRENALS: Unremarkable. No mass. KIDNEYS AND URETERS: Unremarkable. No hydronephrosis. No solid mass. VASCULATURE: Unremarkable. No aortic aneurysm. BOWEL: Diffuse colonic wall thickening with mild left-sided colonic diverticulosis ; correlate for colitis. APPENDIX: Normal appendix. PERITONEUM: Unremarkable. No free fluid. No free air. LYMPH NODES: Unremarkable. No enlarged lymph nodes. BLADDER: Unremarkable. REPRODUCTIVE: Unremarkable. BONES: No acute fracture. OTHER FINDINGS: None. IMPRESSION: Diffuse colonic wall thickening with mild left-sided colonic diverticulosis ; correlate for colitis.
== END 2018-06-11 19:32 | disposition home or self-care (01) ==
LOC: H.ER 14:30
DX: K52.9 Noninfective gastroenteritis and colitis, unspecified (principal); K57.30 Diverticulosis of large intestine without perforation or abscess without bleeding; E78.00 Pure hypercholesterolemia, unspecified; I10 Essential (primary) hypertension; J45.909 Unspecified asthma, uncomplicated; Z79.84 Long term (current) use of oral hypoglycemic drugs
CPT/HCPCS: 74177; 80053; 81003; 82803; 83690; 83735; 84100; 85025; 85610; 85730; 86850; 86900; 87040; 87045; 87086; 87177; 87209; 87230; 93005; 96374; 99284; J2405; J7030; Q9966; Q9967

== ENCOUNTER 2018-06-15 18:56 | Emergency (ER) | payer SELFPAY ==
[2018-06-15 18:56] VITALS: BMI 36.7
[2018-06-15] MEDS ORDERED: Sodium Chloride 0.9% 1,000 ML IV STA (21:08)
--- NOTE | 2018-06-15 21:12 | ED PDOC ---
HPI: Abdomen Time Seen by Provider: 06/15/18 20:35 Chief Complaint (Nursing): Abdominal Pain Chief Complaint (Provider): abdominal pain History Per: Patient History/Exam Limitations: no limitations Onset/Duration Of Symptoms: Days (4) Current Symptoms Are (Timing): Still Present Location Of Pain/Discomfort: Diffuse Associated Symptoms: Diarrhea Additional Complaint(s): 58 y/o female presents for evaluation of abdominal pain x 4 days. Associated nonbloody diarrhea, which has since improved since onset. Patient was evaluated in ED for same on Wednesday, today received phone call from hospital that her stool test was + for shigella. Patient also received phone call from her primary doctor, Dr. Fuller, to return to ED. Patient denies fever, cough, congestion, nausea/vomiting, chest pain, shortness of breath, urinary symptoms, recent travel. Past Medical History Reviewed: Historical Data, Nursing Documentation, Vital Signs Vital Signs: Last Vital Signs Temp 98.2 F 06/15/18 20:10 Pulse 77 06/15/18 20:10 Resp 17 06/15/18 20:10 BP 138/85 06/15/18 20:10 Pulse Ox 97 06/15/18 21:12 - Medical History PMH: Asthma, Bronchitis, Gastritis, HTN, Hypercholesterolemia, Sleep Apnea Denies: Chronic Kidney Disease - Family History Family History: States: Unknown Family Hx, Hypertension - Living Arrangements Living Arrangements: With Family - Home Medications Home Medications: Ambulatory Orders Medication Instructions Recorded Albuterol HFA [Ventolin HFA 90 2 puff IH [id number] 04/26/17 mcg/actuation (8 g)] Atorvastatin [Lipitor] 40 mg PO DAILY 04/26/17 Losartan/Hydrochlorothiazide 1 each PO DAILY 04/26/17 [Losartan-Hctz 100-25 mg Tab] MetFORMIN ER [Glucophage XR] 500 mg PO DAILY 04/26/17 Cholecalciferol (Vitamin D3) 50,000 unit PO QWK 06/04/17 [Vitamin D3] Esomeprazole Magnesium [Nexium 2 cap PO DAILY 06/04/17 24Hr] Fish Oil/Dha/Epa [Fish Oil 1,200 1 each PO DAILY 06/04/17 mg Fish Oil] Promethazine/Codeine 5 ml PO Q6 PRN #100 ml 06/04/17 [Phenergan/Codeine Oral Syrup] levoFLOXacin [Levaquin] 500 mg PO DAILY 06/04/17 Cyclobenzaprine [Cyclobenzaprine 10 mg PO TID PRN #15 tab 05/08/18 HCl] Meloxicam [Mobic] 15 mg PO DAILY #10 tab 05/08/18 Atropine/Diphenoxylate [Lonox 2 tab PO QID PRN #30 tab 06/11/18 0.025 MG-2.5 MG] Ciprofloxacin HCl [Cipro] 500 mg PO BID #20 tab 06/11/18 Saccharomyces Boulardi [Florastor] 500 mg PO BID #28 cap 06/11/18 metroNIDAZOLE [Flagyl] 500 mg PO TID #30 tab 06/11/18 Cefixime [Suprax] 200 mg PO Q12 #10 ctb 06/15/18 - Allergies Allergies/Adverse Reactions: Allergies Allergy/AdvReac Type Severity Reaction Status Date / Time No Known Allergies Allergy Unverified 02/22/14 12:23 Review of Systems ROS Statement: Except As Marked, All Systems Reviewed And Found Negative Gastrointestinal: Positive for: Abdominal Pain, Diarrhea Physical Exam - Reviewed Nursing Documentation Reviewed: Yes Vital Signs Reviewed: Yes - Physical Exam Appears: Positive for: Well, Non-toxic, No Acute Distress Head Exam: Positive for: ATRAUMATIC, NORMAL INSPECTION, NORMOCEPHALIC Skin: Positive for: Normal Color Eye Exam: Positive for: Normal appearance ENT: Positive for: Normal ENT Inspection Cardiovascular/Chest: Positive for: Regular Rate, Rhythm Respiratory: Positive for: Normal Breath Sounds Gastrointestinal/Abdominal: Positive for: Bowel Sounds, Soft, Tenderness (upper abdominal discomfort; neg Kilgore's. ). Negative for: Mass, Distended, Guarding , Rebound Back: Positive for: Normal Inspection Extremity: Positive for: Normal ROM Neurologic/Psych: Positive for: Alert, Oriented (x3) - Laboratory Results Result Diagrams: 06/15/18 21:28 06/15/18 21:28 - ECG O2 Sat by Pulse Oximetry: 97 - Progress ED Course And Treament: Case discussed with Dr. Fuller, states if labs remain normal patient can be discharged with Rx Cefixime and f/up outpatient Labs WNL; no significant changes from previous Vitals stable Patient states she is feeling better. Abdomen soft, NT/ND Patient educated on findings, discharged with rx Cefixime Advised follow up Dr. Alina within 2-3 days Fluids. Vanzant diet Return precautions given Disposition - Clinical Impression Clinical Impression: Shigella enteritis - Patient ED Disposition Is Patient to be Admitted: No Counseled Patient/Family Regarding: Studies Performed, Diagnosis, Need For Followup, Rx Given - Disposition Disposition: Routine/Home Disposition Time: 22:51 Condition: STABLE Prescriptions: Cefixime [Suprax] 200 mg PO Q12 #10 ctb Instructions: Shigellosis Forms: [employer] (Italian)
[2018-06-15 21:34] LABS: BASO # 0.1 K/uL (0.0-0.2); BASO % 1.8 % (0.0-2.0); EOS # 0.4 K/uL (0.0-0.7); EOS % 4.8 % (0.0-4.0); HEMOGLOBIN 12.6 g/dL (12.0-16.0); LYMPH # 4.6 K/uL (1.0-4.3); LYMPH % 53.9 % (20.0-40.0); MEAN CELL VOLUME 87.4 fl (81.0-99.0); MEAN CORPUSCULAR HEMOGLOBIN 29.2 pg (27.0-31.0); MEAN CORPUSCULAR HGB CONC 33.4 g/dL (33.0-37.0); MEAN PLATELET VOLUME 9.3 fl (7.2-11.7); MONO # 0.9 K/uL (0.0-0.8); MONO % 10.4 % (0.0-10.0); NEUT # 2.5 K/uL (1.8-7.0); NEUT % 29.1 % (50.0-75.0); RBC 4.3 Mil/uL (3.80-5.20); RED CELL DISTRIBUTION WIDTH 14.2 % (11.5-14.5); WHITE BLOOD COUNT 8.5 K/uL (4.8-10.8)
[2018-06-15 22:20] LABS: BLOOD UREA NITROGEN 15 mg/dl (7-17); GFR AFRICAN-AMERICAN > 60; GFR NON-AFRICAN AMERICAN > 60
[2018-06-15 22:21] LABS: ALB/GLOB RATIO 1.2 (1.0-2.1); ALBUMIN 4.2 g/dL (3.5-5.0); ALT/SGPT 62 U/L (9-52); AST/SGOT 64 U/L (14-36); CALCIUM 9.2 mg/dL (8.4-10.2); LIPASE 52 U/L (23-300)
[2018-06-15 22:30] LABS: SQUAMOUS EPITHIAL 1 /hpf (0-5); URINE BILIRUBIN NEGATIVE (NEGATIVE); URINE BLOOD NEGATIVE (NEGATIVE); URINE CLARITY SL CLOUDY (Clear); URINE COLOR YELLOW (YELLOW); URINE GLUCOSE (UA) NEG (Normal); URINE LEUKOCYTE ESTERASE NEG Leu/uL (Negative); URINE PROTEIN NEGATIVE (NEGATIVE); URINE UROBILINOGEN 0.2 mg/dL (0.2-1.0)
[2018-06-15 22:31] LABS: URINE BACTERIA FEW (<OCC)
[2018-06-15 23:35] VITALS: BP 130/80; PULSE 80; RESP 18; TEMP 98.4; O2SAT 96
== END 2018-06-15 23:08 | disposition home or self-care (01) ==
LOC: H.ER 18:56
DX: A03.9 Shigellosis, unspecified (principal)
CPT/HCPCS: 80053; 81003; 83605; 83690; 85025; 87040; 99284; J7030